=== PATIENT | female | born 1990 | race Caucasian/White ===

== ENCOUNTER 2018-08-31 00:12 | Emergency (ER) | payer SELFPAY, OTHER ==
[2018-08-31 01:14] LABS: URINE BLOOD (Dip) POC 2+ (NEGATIVE); URINE GLUCOSE (Dip) POC Negative (NEGATIVE); URINE KETONES (Dip) POC Negative (NEGATIVE); URINE LEUKOCYTE EST (Dip) POC 2+ (NEGATIVE); URINE NITRITE (Dip) POC Negative (NEGATIVE); URINE TOTAL PROTEIN POC Negative (NEGATIVE)
[2018-08-31] MEDS: NITROFURANTOIN (SR) 100 MG CAP PO (01:25)
[2018-08-31] MEDS: PHENAZOPYRIDINE 100 MG TAB PO (01:25)
== END 2018-08-31 01:44 | disposition home or self-care (01) ==
LOC: FTE 00:12
DX: N39.0 Urinary tract infection, site not specified (principal)
CPT/HCPCS: 81003; 81025; 99283